=== PATIENT | male | born 1960 | race Two or more races ===

== ENCOUNTER → 2017-10-11 | Outpatient (CLI) | payer OTHER | END | disposition home or self-care (01) | LOC: HKI 13:27 | DX: Z01.818 Encounter for other preprocedural examination (principal) | CPT/HCPCS: Z7500 ==

== ENCOUNTER → 2017-11-29 | Outpatient (CLI) | payer OTHER | END | disposition home or self-care (01) | LOC: HKI 08:41 | DX: Z01.818 Encounter for other preprocedural examination (principal) | CPT/HCPCS: 73564; 73564-RT ==

== ENCOUNTER 2017-12-02 12:53 | Inpatient (IN) | payer OTHER ==
[~2017-12-02 12:53] MED LIST: ROPIVACAINE 0.2% 60 ML, morphine SULFATE (PF) 4 MG, CLONIDINE 100 MCG, KETOROLAC 30 MG,... INJ
[2017-12-02] MEDS: ONDANSETRON 4 MG INJ IV ×3 (14:28→21:36)
[2017-12-02] MEDS: LANSOPRAZOLE 30 MG CAP PO (14:28)
[2017-12-02] MEDS: ACETAMINOPHEN 1000MG/100ML IV 100 ML IVPB (14:28)
[2017-12-02] MEDS: DEXAMETHASONE 4 MG/ML 1 ML INJ IV (14:28)
[2017-12-02] MEDS: oxyCODONE (CR) 10 MG TAB [oxyCONTIN] PO (14:29)
[2017-12-02] MEDS: CELECOXIB 200 MG CAP PO (14:30)
[2017-12-02] MEDS ORDERED: TRANEXAMIC ACID 1,000 MG in NS 100 ML PRE-OP X1 IVPB (14:30)
[2017-12-02] MEDS: LACTATED RINGER'S 1,000 ML IV* (15:00)
[2017-12-02] MEDS: KNEE PAIN COCKTAIL (CEFUROXIME) INJ ×2 (15:00→17:01)
[2017-12-02] MEDS: TRANEXAMIC ACID 1,000 MG in NS 100 ML INTRA-OP X1 IVPB ×2 (15:18→16:44)
[2017-12-02] MEDS ORDERED: BUPIVACAINE 0.75%/DEXT (SPINAL) 2 ML INJ (15:20)
[2017-12-02] MEDS: BACITRACIN 50000 UNITS INJ (15:20)
[2017-12-02] MEDS: POLYMYXIN B 500000 UNIT INJ (15:20)
[2017-12-02] MEDS ORDERED: NALOXONE (0.4 MG/ML) INJ IV (15:30)
[2017-12-02] MEDS ORDERED: NA PHOSPHATE/BIPHOS 133 ML ENEMA PR (15:30)
[2017-12-02] MEDS ORDERED: MAGNESIUM HYDROXIDE 30ML CUP PO (15:30)
[2017-12-02] MEDS ORDERED: BISACODYL 10 MG SUPP PR (15:30)
[2017-12-02] MEDS ORDERED: oxyCODONE 5 MG TAB PO ×2 (15:30)
[2017-12-02] MEDS ORDERED: BETHANECHOL 25 MG TAB PO (15:30)
[2017-12-02] MEDS ORDERED: ZOLPIDEM 5 MG TAB PO (15:30)
[2017-12-02] MEDS ORDERED: DIPHENHYDRAMINE 50 MG INJ IV ×2 (15:30→17:00)
[2017-12-02] MEDS ORDERED: KETOROLAC 15 MG INJ IV (15:30)
[2017-12-02] MEDS ORDERED: SENNA/DOCUSATE NA (8.6MG/50MG) TAB PO (15:30)
[2017-12-02] MEDS ORDERED: TRIMETHOBENZAMIDE 100 MG/ML VIAL IM (15:30)
[2017-12-02] MEDS: CEFAZOLIN 2 GM/50 ML (PMX) 50 ML IVPB (15:35)
[2017-12-02] MEDS ORDERED: CEFAZOLIN 1 GM INJ (16:04)
[2017-12-02] MEDS ORDERED: NEOSTIGMINE 3 MG/3 ML SYRINGE (16:04)
[2017-12-02] MEDS ORDERED: GLYCOPYRROLATE 0.4 MG INJ (16:04)
[2017-12-02] MEDS ORDERED: LIDOCAINE 2% (SDV) 5 ML INJ (16:04)
[2017-12-02] MEDS ORDERED: SUCCINYLCHOLINE CHLORIDE 100 MG/5 ML SYG IV (16:04)
[2017-12-02] MEDS ORDERED: ROCURONIUM 50 MG INJ (16:04)
[2017-12-02] MEDS ORDERED: PROPOFOL 20 ML (16:04)
[2017-12-02] MEDS ORDERED: ROPIVACAINE 0.5 % 30 ML VIAL (16:05)
[2017-12-02] MEDS ORDERED: LABETALOL HCL 20MG INJ IV (17:00)
[2017-12-02] MEDS ORDERED: METOCLOPRAMIDE 10 MG INJ IV (17:00)
[2017-12-02] MEDS ORDERED: FENTAnyl 50 MCG/ML VIAL IV ×3 (17:00)
[2017-12-02] MEDS ORDERED: MIDAZOLAM 1 MG/ML 2 ML INJ IV (17:00)
[2017-12-02] MEDS ORDERED: EPHEDrine SULFATE 50 MG/5 ML SYG IV (17:00)
[2017-12-02] MEDS ORDERED: MEPERIDINE 25 MG INJ IV (17:00)
[2017-12-02] MEDS ORDERED: hydrALAzine 20 MG INJ IV ×2 (17:00→18:30)
[2017-12-02] MEDS ORDERED: OXYCODONE/ACETAMINOPHEN (5/325) TAB PO ×2 (17:00)
[2017-12-02] MEDS ORDERED: HYDROmorphONE (0.2 MG/ML) 10ML SYG IV ×3 (17:00)
[2017-12-02] MEDS ORDERED: ONDANSETRON 4 MG INJ IV ×2 (17:00→18:30)
[2017-12-02] MEDS ORDERED: LORAZEPAM 0.5 MG TAB PO (18:30)
[2017-12-02] MEDS: ASPIRIN (EC) 325 MG TAB PO ×2 (18:30→19:52)
[2017-12-02] MEDS: DOCUSATE SODIUM 100 MG CAP PO (18:30)
[2017-12-02] MEDS: CEFAZOLIN 1 GM/50 ML (PMX) 50 ML IVPB ×2 (18:30→23:43)
[2017-12-02] MEDS: SOD CHLORIDE 0.9% 1,000 ML IV (21:35)
[2017-12-02] MEDS: oxyCODONE 5 MG TAB PO (21:35)
[2017-12-02] MEDS: GABAPENTIN 100 MG CAP PO (21:36)
[2017-12-03] MEDS: ONDANSETRON 4 MG INJ IV ×2 (03:05→09:30)
[2017-12-03] MEDS: SOD CHLORIDE 0.9% 1,000 ML IV ×2 (03:09→15:16)
[2017-12-03 05:39] LABS: ADD MAN DIFF? NO
[2017-12-03 05:46] LABS: ABNORMAL IP MESSAGE 1; BASOPHILS % 0.1 % (0.0-2.0); HEMATOCRIT 38.1 % (42.0-52.0); HEMOGLOBIN 12.8 g/dl (14.0-18.0); LYMPHOCYTES # 0.6 10^3/ul (0.8-2.9); LYMPHOCYTES % 6.5 % (15.0-51.0); MEAN CORPUSCULAR HGB CONC 33.6 g/dl (32.0-37.0); MEAN CORPUSCULAR VOLUME 86.4 fl (82.0-101.0); MEAN PLATELET VOLUME 10.5 fl (7.4-10.4); MONOCYTE # 0.2 10^3/ul (0.3-0.9); MONOCYTES % 2.5 % (0.0-11.0); NEUTROPHILS % 90.6 % (39.0-77.0); PLATELET COUNT 190 10^3/UL (140-415); POSITIVE DIFF @See below; RED BLOOD COUNT 4.41 10^6/ul (4.70-6.10); RED CELL DISTRIBUTION WIDTH 12.2 % (11.5-14.5)
[2017-12-03 05:46] LABS: WHITE BLOOD COUNT 8.8 10^3/ul (4.8-10.8)
[2017-12-03 06:10] LABS: ANION GAP 16 (8-16); BLOOD UREA NITROGEN 24 mg/dl (7-20); CALCIUM 8.3 mg/dl (8.4-10.2); CARBON DIOXIDE 27 mmol/L (21-31); CHLORIDE 105 mmol/L (97-110); CREATININE 1.14 mg/dl (0.61-1.24); GLUCOSE 126 mg/dl (70-220); POTASSIUM 4.7 mmol/L (3.5-5.1); SODIUM 143 mmol/L (135-144)
[2017-12-03] MEDS: CEFAZOLIN 1 GM/50 ML (PMX) 50 ML IVPB (06:54)
[2017-12-03 09:09] LABS: ADD UMIC NO; UR ASCORBIC ACID NEGATIVE (NEGATIVE); UR BILIRUBIN (Dip) NEGATIVE (NEGATIVE); UR BLOOD (Dip) NEGATIVE (NEGATIVE); UR CLARITY CLEAR (CLEAR); UR COLOR YELLOW (YELLOW); UR GLUCOSE (Dip) NEGATIVE (NEGATIVE); UR KETONES (Dip) NEGATIVE (NEGATIVE); UR LEUKOCYTE ESTERASE (Dip) NEGATIVE Leu/ul (NEGATIVE); UR NITRITE (Dip) NEGATIVE (NEGATIVE); UR SPECIFIC GRAVITY (Dip) 1.017 (1.003-1.030); UR TOTAL PROTEIN (Dip) NEGATIVE (NEGATIVE); UR UROBILINOGEN (Dip) NEGATIVE (NEGATIVE)
[2017-12-03] MEDS: AMLODIPINE 10 MG TAB PO (09:13)
[2017-12-03] MEDS: DOCUSATE SODIUM 100 MG CAP PO (09:13)
[2017-12-03] MEDS: FERROUS FUMARATE (SR) TAB PO (09:13)
[2017-12-03] MEDS: ASPIRIN (EC) 325 MG TAB PO (09:14)
[2017-12-03] MEDS: GABAPENTIN 100 MG CAP PO (09:14)
[2017-12-03] MEDS: CELECOXIB 200 MG CAP PO (09:14)
[2017-12-03] MEDS: BENAZEPRIL 20 MG TAB PO (09:15)
[2017-12-03] MEDS: oxyCODONE 5 MG TAB PO (12:27)
[2017-12-04] MEDS ORDERED: PANTOPRAZOLE (EC) 40 MG TAB PO (06:00)
== END 2017-12-03 16:00 | disposition home health service (06) | DRG 470 ==
LOC: REC 12:53 → MS1 19:45
PROC: 0SRC0J9 Replacement of Right Knee Joint with Synthetic Substitute, Cemented, Open Approach (ICD-10-PCS; principal; 2017-12-02 15:00)
DX: M17.11 Unilateral primary osteoarthritis, right knee (principal)
CPT/HCPCS: 73560; 80048; 81003; 85025; 86850; 86900; 86901; 87086; 88304; 88311; 97162; 97165

== ENCOUNTER → 2017-12-17 | Outpatient (CLI) | payer OTHER | END | disposition home or self-care (01) | LOC: HKI 10:11 | DX: Z09 Encounter for follow-up examination after completed treatment for conditions other than malignant neoplasm (principal); M25.561 Pain in right knee; Z96.651 Presence of right artificial knee joint | CPT/HCPCS: 73562; 73562-RT ==

== ENCOUNTER 2018-01-02 21:11 | Emergency (ER) | payer OTHER | END 2018-01-02 22:57 | disposition home or self-care (01) | LOC: FTE 21:11 | DX: R05 Cough (principal); I10 Essential (primary) hypertension; Z87.891 Personal history of nicotine dependence | CPT/HCPCS: 99283; Z7502 ==

== ENCOUNTER → 2018-01-17 | Outpatient (CLI) | payer OTHER | END | disposition home or self-care (01) | LOC: HKI 09:48 | DX: Z09 Encounter for follow-up examination after completed treatment for conditions other than malignant neoplasm (principal); M25.561 Pain in right knee; Z96.651 Presence of right artificial knee joint | CPT/HCPCS: 73562; 73562-RT ==

== ENCOUNTER → 2018-02-01 | Outpatient (CLI) | payer OTHER | END | disposition home or self-care (01) | LOC: HKI 14:50 | DX: Z09 Encounter for follow-up examination after completed treatment for conditions other than malignant neoplasm (principal); M25.561 Pain in right knee; Z96.651 Presence of right artificial knee joint | CPT/HCPCS: 73562; 73562-RT ==

== ENCOUNTER → 2018-03-21 | Outpatient (CLI) | payer OTHER | END | disposition home or self-care (01) | LOC: HKI 10:24 | DX: Z47.1 Aftercare following joint replacement surgery (principal); Z96.651 Presence of right artificial knee joint | CPT/HCPCS: 20610; 73562-RT ==

== ENCOUNTER → 2018-05-23 | Outpatient (CLI) | payer OTHER | END | disposition home or self-care (01) | LOC: HKI 09:00 | DX: M25.561 Pain in right knee (principal); M62.81 Muscle weakness (generalized); Z96.651 Presence of right artificial knee joint | CPT/HCPCS: 73562; 73562-RT ==

== ENCOUNTER 2018-08-20 08:13 | Emergency (ER) | payer OTHER ==
[2018-08-20 09:04] LABS: ADD MAN DIFF? NO
[2018-08-20 09:07] LABS: BASOPHILS % 0.6 % (0.0-2.0); EOSINOPHILS # 0.1 10^3/ul (0.0-0.5); EOSINOPHILS % 1.7 % (0.0-7.0); HEMATOCRIT 47.3 % (42.0-52.0); HEMOGLOBIN 15.6 g/dl (14.0-18.0); LYMPHOCYTES % 21.8 % (15.0-51.0); MEAN CORPUSCULAR HEMOGLOBIN 29.3 pg (29.0-33.0); MEAN CORPUSCULAR VOLUME 88.7 fl (82.0-101.0); MEAN PLATELET VOLUME 10.1 fl (7.4-10.4); MONOCYTE # 0.2 10^3/ul (0.3-0.9); MONOCYTES % 4.8 % (0.0-11.0); NEUTROPHIL # 3.4 10^3/ul (1.6-7.5); NEUTROPHILS % 70.7 % (39.0-77.0); PLATELET COUNT 176 10^3/UL (140-415); RED BLOOD COUNT 5.33 10^6/ul (4.70-6.10); RED CELL DISTRIBUTION WIDTH 12.8 % (11.5-14.5)
[2018-08-20 09:07] LABS: WHITE BLOOD COUNT 4.8 10^3/ul (4.8-10.8)
[2018-08-20 09:24] LABS: ALANINE AMINOTRANSFERASE 28 IU/L (13-69); ALBUMIN 4.5 g/dl (3.3-4.9); ALBUMIN/GLOBULIN RATIO 1.45; ALKALINE PHOSPHATASE 77 IU/L (42-121); ANION GAP 10 (5-13); ASPARTATE AMINO TRANSFERASE 25 IU/L (15-46); BILIRUBIN,INDIRECT 0.7 mg/dl (0-1.1); BILIRUBIN,TOTAL 0.7 mg/dl (0.2-1.3); BLOOD UREA NITROGEN 18 mg/dl (7-20); CARBON DIOXIDE 27 mmol/L (21-31); CHLORIDE 104 mmol/L (97-110); CREATINE KINASE 152 IU/L (23-200); CREATININE 1.01 mg/dl (0.61-1.24); Estimated GFR > 60 mL/min (>60); GLUCOSE 148 mg/dl (70-220); POTASSIUM 3.7 mmol/L (3.5-5.1); SODIUM 141 mmol/L (135-144); TOTAL PROTEIN 7.6 g/dl (6.1-8.1)
[2018-08-20 09:26] LABS: INR 0.97
[2018-08-20 09:27] LABS: PARTIAL THROMBOPLASTIN TIME 32.1 Sec (23.0-35.0)
[2018-08-20 09:36] LABS: B-TYPE NATRIURETIC PEPTIDE 213 PG/ML (0-125); CK INDEX 1.5; TROPONIN-I < 0.012 ng/ml (0.000-0.120)
== END 2018-08-20 10:26 | disposition home or self-care (01) ==
LOC: E/R 08:13
DX: S40.022A Contusion of left upper arm, initial encounter (principal); I16.0 Hypertensive urgency; I10 Essential (primary) hypertension; W20.8XXA Other cause of strike by thrown, projected or falling object, initial encounter; Z87.891 Personal history of nicotine dependence
CPT/HCPCS: 36415; 73060; 80053; 82550; 82553; 83880; 84484; 85025; 85610; 85730; 93005; 99285-25

== ENCOUNTER → 2018-11-01 | Outpatient (CLI) | payer OTHER | END | disposition home or self-care (01) | LOC: HKI 12:51 | DX: Z09 Encounter for follow-up examination after completed treatment for conditions other than malignant neoplasm (principal); Z96.651 Presence of right artificial knee joint | CPT/HCPCS: 73562; 73562-RT ==

== ENCOUNTER 2018-11-26 12:47 | Emergency (ER) | payer OTHER ==
[2018-11-26] MEDS: IBUPROFEN 600 MG TAB PO (16:01)
== END 2018-11-26 16:41 | disposition home or self-care (01) ==
LOC: FTE 16:41
DX: M79.672 Pain in left foot (principal); I10 Essential (primary) hypertension; Z96.651 Presence of right artificial knee joint
CPT/HCPCS: 73630; 73630-LT; 99283-25

== ENCOUNTER 2019-01-21 06:21 | Emergency (ER) | payer OTHER | END 2019-01-21 07:56 | disposition home or self-care (01) | LOC: FTE 07:56 | DX: M77.32 Calcaneal spur, left foot (principal); I10 Essential (primary) hypertension; Z96.651 Presence of right artificial knee joint | CPT/HCPCS: 73630; 73630-LT; 99283-25 ==

== ENCOUNTER → 2019-05-13 | Emergency (ER) | payer OTHER ==
[2019-05-13] MEDS: HYDROCODONE/APAP (10/325) TAB PO (07:50)
== END | disposition home or self-care (01) ==
LOC: FTE 07:18
DX: M25.561 Pain in right knee (principal); M66.0 Rupture of popliteal cyst; I10 Essential (primary) hypertension; Z96.651 Presence of right artificial knee joint
CPT/HCPCS: 93971; 99284-25

== ENCOUNTER 2019-05-24 06:41 | Inpatient (IN) | payer OTHER ==
[2019-05-24] MEDS: CEFAZOLIN 1 GM/50 ML (PMX) 50 ML IVPB ×2 (06:00→21:18)
[~2019-05-24 06:41] MED LIST changes: +ACETAMINOPHEN 500 MG TAB PO; -ROPIVACAINE 0.2% 60 ML, morphine SULFATE (PF) 4 MG, CLONIDINE 100 MCG, KETOROLAC 30 MG,... INJ
[2019-05-24] MEDS ORDERED: ETOMIDATE 20 MG INJ (07:00)
[2019-05-24] MEDS: DEXAMETHASONE 4 MG/ML 1 ML INJ IV (08:20)
[2019-05-24] MEDS: LANSOPRAZOLE 30 MG CAP PO (08:20)
[2019-05-24] MEDS: ONDANSETRON 4 MG INJ IV (08:20)
[2019-05-24] MEDS: oxyCODONE (CR) 10 MG TAB [oxyCONTIN] PO (08:20)
[2019-05-24] MEDS: ACETAMINOPHEN 1000MG/100ML IV 100 ML IVPB (08:21)
[2019-05-24] MEDS ORDERED: hydrALAzine 20 MG INJ IV (10:00)
[2019-05-24] MEDS ORDERED: MEPERIDINE 25 MG INJ IV (10:00)
[2019-05-24] MEDS ORDERED: HYDROmorphONE 1 MG/5 ML IV SYRINGE IV ×3 (10:00)
[2019-05-24] MEDS ORDERED: LABETALOL HCL 20MG INJ IV (10:00)
[2019-05-24] MEDS ORDERED: TRANEXAMIC ACID 1GM/100ML(PMX) 100 ML ×2 (10:03)
[2019-05-24] MEDS ORDERED: POLYMYXIN B 500000 UNIT INJ (10:03)
[2019-05-24] MEDS ORDERED: EPHEDrine 25 MG/5 ML SYG (10:30)
[2019-05-24] MEDS ORDERED: LIDOCAINE 2% (SDV) 5 ML INJ (10:30)
[2019-05-24] MEDS ORDERED: PHENYLephrine (100 MCG/ML) 10ML SYG (10:30)
[2019-05-24] MEDS ORDERED: MIDAZOLAM 1 MG/ML 2 ML INJ (10:30)
[2019-05-24] MEDS ORDERED: PROPOFOL 20 ML (10:30)
[2019-05-24] MEDS ORDERED: FAMOTIDINE 20 MG INJ (10:50)
[2019-05-24] MEDS ORDERED: DEXAMETHASONE 4 MG/ML 5 ML INJ (10:50)
[2019-05-24] MEDS ORDERED: CEFAZOLIN 1 GM INJ (10:50)
[2019-05-24] MEDS ORDERED: ONDANSETRON 4 MG INJ (10:50)
[2019-05-24] MEDS: TRANEXAMIC ACID 1GM/100ML(PMX) 100 ML PRE-OP X1 IVPB (11:14)
[2019-05-24] MEDS: HIP PAIN COCKTAIL VANCO INJ (11:41)
[2019-05-24] MEDS: BACITRACIN 50000 UNITS INJ IRR (11:42)
[2019-05-24] MEDS: POLYMYXIN B 500000 UNIT INJ IRR (11:42)
[2019-05-24] MEDS: TRANEXAMIC ACID 1GM/100ML(PMX) 100 ML INTRA-OP X1 IVPB (11:43)
[2019-05-24 12:23] LABS: SYN FLD WBC 382 /cmm (0-150)
[2019-05-24 12:48] LABS: SYN FLD CLARITY BLOODY; SYN FLD COLOR RED; SYN FLD CRYSTALS NO CRYSTALS SEEN (None seen)
[2019-05-24 12:48] LABS: SYN FLD SOURCE RIGHT KNEE
[2019-05-24] MEDS ORDERED: ROPIVACAINE 0.5 % 30 ML VIAL (15:09)
[2019-05-24] MEDS ORDERED: NA PHOSPHATE/BIPHOS 133 ML ENEMA PR (16:30)
[2019-05-24] MEDS ORDERED: SENNA/DOCUSATE NA (8.6MG/50MG) TAB PO (16:30)
[2019-05-24] MEDS ORDERED: MAGNESIUM HYDROXIDE 30ML CUP PO (16:30)
[2019-05-24] MEDS ORDERED: NALOXONE (0.4 MG/ML) INJ IV (16:30)
[2019-05-24] MEDS ORDERED: NACL 0.9% 3 ML SYG IV (16:30)
[2019-05-24] MEDS ORDERED: BISACODYL 10 MG SUPP PR (16:30)
[2019-05-24] MEDS: DOCUSATE SODIUM 100 MG CAP PO (16:40)
[2019-05-24] MEDS: KETOROLAC 15 MG INJ IV (16:44)
[2019-05-24] MEDS: oxyCODONE 5 MG TAB PO (20:17)
[2019-05-24] MEDS: GABAPENTIN 100 MG CAP PO (21:18)
[2019-05-25 05:35] LABS: ADD MAN DIFF? NO
[2019-05-25 05:41] LABS: WHITE BLOOD COUNT 11.3 10^3/ul (4.8-10.8)
[2019-05-25 05:41] LABS: BASOPHILS % 0.1 % (0.0-2.0); HEMATOCRIT 36.9 % (42.0-52.0); LYMPHOCYTES # 0.7 10^3/ul (0.8-2.9); LYMPHOCYTES % 6.2 % (15.0-51.0); MEAN CORPUSCULAR HEMOGLOBIN 29.3 pg (29.0-33.0); MEAN CORPUSCULAR HGB CONC 32.5 g/dl (32.0-37.0); MEAN PLATELET VOLUME 10.2 fl (7.4-10.4); MONOCYTE # 0.8 10^3/ul (0.3-0.9); NEUTROPHIL # 9.8 10^3/ul (1.6-7.5); PLATELET COUNT 196 10^3/UL (140-415); RED CELL DISTRIBUTION WIDTH 12.4 % (11.5-14.5)
[2019-05-25] MEDS: CEFAZOLIN 1 GM/50 ML (PMX) 50 ML IVPB ×3 (05:42→21:05)
[2019-05-25 05:52] LABS: ANION GAP 8 (5-13); BLOOD UREA NITROGEN 21 mg/dl (7-20); CALCIUM 8.5 mg/dl (8.4-10.2); CARBON DIOXIDE 26 mmol/L (21-31); CHLORIDE 103 mmol/L (97-110); CREATININE 1.07 mg/dl (0.61-1.24); Estimated GFR > 60 mL/min (>60); GLUCOSE 132 mg/dl (70-220); POTASSIUM 4.6 mmol/L (3.5-5.1); SODIUM 137 mmol/L (135-144)
[2019-05-25] MEDS: ASPIRIN (EC) 81 MG TAB PO ×2 (09:04→20:40)
[2019-05-25] MEDS: GABAPENTIN 100 MG CAP PO ×3 (09:04→20:38)
[2019-05-25] MEDS: DOCUSATE SODIUM 100 MG CAP PO ×2 (09:04→20:39)
[2019-05-25] MEDS: CELECOXIB 100 MG CAP PO ×2 (09:04→20:38)
[2019-05-25] MEDS: oxyCODONE 5 MG TAB PO ×3 (09:04→17:48)
[2019-05-25] MEDS ORDERED: hydrALAzine 20 MG INJ IV (09:30)
[2019-05-25] MEDS: BENAZEPRIL 40 MG TAB PO (10:58)
[2019-05-25] MEDS: AMLODIPINE 10 MG TAB PO (10:58)
[2019-05-25] MEDS: ATORVASTATIN 10 MG TAB PO (20:39)
[2019-05-25] MEDS: BENAZEPRIL 10 MG TAB PO (20:41)
[2019-05-26 05:00] LABS: ADD MAN DIFF? NO
[2019-05-26 05:10] LABS: ABNORMAL IP MESSAGE 1; BASOPHILS % 0.5 % (0.0-2.0); EOSINOPHILS # 0.2 10^3/ul (0.0-0.5); EOSINOPHILS % 2.5 % (0.0-7.0); HEMATOCRIT 34.4 % (42.0-52.0); HEMOGLOBIN 11.1 g/dl (14.0-18.0); LYMPHOCYTES # 0.5 10^3/ul (0.8-2.9); LYMPHOCYTES % 7.6 % (15.0-51.0); MEAN CORPUSCULAR HEMOGLOBIN 29.3 pg (29.0-33.0); MEAN CORPUSCULAR HGB CONC 32.3 g/dl (32.0-37.0); MEAN CORPUSCULAR VOLUME 90.8 fl (82.0-101.0); MEAN PLATELET VOLUME 10.1 fl (7.4-10.4); MONOCYTE # 0.4 10^3/ul (0.3-0.9); MONOCYTES % 6.3 % (0.0-11.0); NEUTROPHIL # 5.2 10^3/ul (1.6-7.5); NEUTROPHILS % 82.6 % (39.0-77.0); PLATELET COUNT 146 10^3/UL (140-415); POSITIVE DIFF @See below; RED BLOOD COUNT 3.79 10^6/ul (4.70-6.10); RED CELL DISTRIBUTION WIDTH 13.1 % (11.5-14.5)
[2019-05-26 05:10] LABS: WHITE BLOOD COUNT 6.3 10^3/ul (4.8-10.8)
[2019-05-26] MEDS: CEFAZOLIN 1 GM/50 ML (PMX) 50 ML IVPB ×3 (05:13→22:10)
[2019-05-26] MEDS: PANTOPRAZOLE (EC) 40 MG TAB PO (05:14)
[2019-05-26] MEDS: KETOROLAC 15 MG INJ IV ×2 (05:17→18:47)
[2019-05-26 05:19] LABS: ANION GAP 5 (5-13); BLOOD UREA NITROGEN 27 mg/dl (7-20); CALCIUM 8.1 mg/dl (8.4-10.2); CARBON DIOXIDE 28 mmol/L (21-31); CHLORIDE 103 mmol/L (97-110); CREATININE 1.25 mg/dl (0.61-1.24); Estimated GFR 59 mL/min (>60); GLUCOSE 111 mg/dl (70-220); POTASSIUM 3.7 mmol/L (3.5-5.1); SODIUM 136 mmol/L (135-144)
[2019-05-26] MEDS: DOCUSATE SODIUM 100 MG CAP PO ×2 (08:15→20:42)
[2019-05-26] MEDS: CELECOXIB 100 MG CAP PO ×2 (08:16→20:43)
[2019-05-26] MEDS: GABAPENTIN 100 MG CAP PO ×3 (08:16→20:43)
[2019-05-26] MEDS: ASPIRIN (EC) 81 MG TAB PO ×2 (08:16→20:43)
[2019-05-26] MEDS: AMLODIPINE 10 MG TAB PO (08:18)
[2019-05-26] MEDS: BENAZEPRIL 40 MG TAB PO (08:18)
[2019-05-26] MEDS: ATORVASTATIN 10 MG TAB PO (20:43)
[2019-05-26] MEDS: BENAZEPRIL 20 MG TAB PO (20:48)
[2019-05-27] MEDS: CEFAZOLIN 1 GM/50 ML (PMX) 50 ML IVPB (05:31)
[2019-05-27] MEDS: PANTOPRAZOLE (EC) 40 MG TAB PO (05:31)
[2019-05-27 05:36] LABS: ADD MAN DIFF? NO
[2019-05-27 05:43] LABS: WHITE BLOOD COUNT 5.4 10^3/ul (4.8-10.8)
[2019-05-27 05:43] LABS: ABNORMAL IP MESSAGE 1; BASOPHILS % 0.4 % (0.0-2.0); EOSINOPHILS # 0.3 10^3/ul (0.0-0.5); EOSINOPHILS % 5.2 % (0.0-7.0); HEMATOCRIT 34.3 % (42.0-52.0); HEMOGLOBIN 11.4 g/dl (14.0-18.0); LYMPHOCYTES # 0.4 10^3/ul (0.8-2.9); LYMPHOCYTES % 7.2 % (15.0-51.0); MEAN CORPUSCULAR HEMOGLOBIN 29.5 pg (29.0-33.0); MEAN CORPUSCULAR HGB CONC 33.2 g/dl (32.0-37.0); MEAN CORPUSCULAR VOLUME 88.9 fl (82.0-101.0); MEAN PLATELET VOLUME 10.1 fl (7.4-10.4); MONOCYTE # 0.4 10^3/ul (0.3-0.9); MONOCYTES % 6.6 % (0.0-11.0); NEUTROPHIL # 4.3 10^3/ul (1.6-7.5); NEUTROPHILS % 79.9 % (39.0-77.0); PLATELET COUNT 145 10^3/UL (140-415); POSITIVE DIFF @See below; RED BLOOD COUNT 3.86 10^6/ul (4.70-6.10); RED CELL DISTRIBUTION WIDTH 12.8 % (11.5-14.5)
[2019-05-27 06:13] LABS: ANION GAP 3 (5-13); BLOOD UREA NITROGEN 20 mg/dl (7-20); CALCIUM 7.9 mg/dl (8.4-10.2); CARBON DIOXIDE 28 mmol/L (21-31); CHLORIDE 105 mmol/L (97-110); CREATININE 1.05 mg/dl (0.61-1.24); Estimated GFR > 60 mL/min (>60); GLUCOSE 113 mg/dl (70-220); POTASSIUM 3.6 mmol/L (3.5-5.1); SODIUM 136 mmol/L (135-144)
[2019-05-27] MEDS: DOCUSATE SODIUM 100 MG CAP PO (09:00)
[2019-05-27] MEDS: GABAPENTIN 100 MG CAP PO ×2 (09:16→13:08)
[2019-05-27] MEDS: CELECOXIB 100 MG CAP PO (09:16)
[2019-05-27] MEDS: ASPIRIN (EC) 81 MG TAB PO (09:16)
[2019-05-27] MEDS: AMLODIPINE 10 MG TAB PO (09:17)
[2019-05-27] MEDS: BENAZEPRIL 40 MG TAB PO (09:18)
[2019-05-27] MEDS: POTASSIUM CHLORIDE (SR) 20 MEQ TAB PO (10:25)
== END 2019-05-27 14:17 | disposition home or self-care (01) | DRG 468 ==
LOC: REC 06:41 → MS1 17:44
PROVIDERS: Orthopaedic Surgery Adult Reconstructive Orthopaedic Surgery
PROC: 0SPT0JZ Removal of Synthetic Substitute from Right Knee Joint, Femoral Surface, Open Approach (ICD-10-PCS; principal; 2019-05-24 10:28)
PROC: 0SRT0J9 Replacement of Right Knee Joint, Femoral Surface with Synthetic Substitute, Cemented, Open Approach (ICD-10-PCS; 2019-05-24 10:28)
DX: M23.51 Chronic instability of knee, right knee (principal); M17.11 Unilateral primary osteoarthritis, right knee; I10 Essential (primary) hypertension; E78.5 Hyperlipidemia, unspecified
CPT/HCPCS: 73560; 80048; 85025; 87070; 87075; 87086; 87102; 87116; 88300; 89060; 97116; 97162; 97530